=== PATIENT | male | born 1975 | race Caucasian/White ===

== ENCOUNTER 2017-01-07 22:28 | Emergency (ER) | payer OTHER ==
[~2017-01-07] VITALS: Ht 149.9 cm; Wt 72.7 kg
[2017-01-07] MEDS ORDERED: PRED20TA PO (22:52)
[2017-01-07] MEDS ORDERED: METH75TA PO (22:52)
[2017-01-07] MEDS ORDERED: IBUP80TA PO (22:52)
[2017-01-07] MEDS ORDERED: FAMOTIDINE INJ 20MG/2ML VIAL (S0028) IVP ONE (23:15)
[2017-01-07] MEDS ORDERED: methylPREDNISolone INJ 125 MG/2 ML VIAL (J2930) IV ONE (23:15)
[2017-01-07] MEDS ORDERED: diphenhydrAMINE INJ 50MG/ML VIAL (J1200) IV ONE (23:15)
[2017-01-08] MEDS ORDERED: PEPC1TAB4 PO (01:21)
[2017-01-08] MEDS ORDERED: PRED20TA PO (01:21)
[2017-01-08 01:28] VITALS: BP 142/82
--- NOTE | 2017-01-08 14:16 | ECGEPIP ---
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
== END 2017-01-08 01:33 | disposition home or self-care (01) ==
LOC: M ED 22:28
DX: R22.0 Localized swelling, mass and lump, head (principal); T78.40XA Allergy, unspecified, initial encounter; X58.XXXA Exposure to other specified factors, initial encounter; Y92.89 Other specified places as the place of occurrence of the external cause; Y93.89 Activity, other specified; Y99.8 Other external cause status; Z79.899 Other long term (current) drug therapy
CPT/HCPCS: 93005; 96374; 96375; 99284; J1200; J2930

== ENCOUNTER → 2018-01-07 | Outpatient (REF) | payer OTHER ==
[2018-01-07 12:18] LABS: BASO % 0.3 % (0.0-1.0); EOS # 0.1 10^3/uL (0.0-0.50); EOS % 1.2 % (0.0-3.0); HEMOGLOBIN 15.9 g/dl (13.5-17.5); IMMATURE GRANULOCYTE % 0.2 % (0-3.0); LYMPH # 2.3 10^3/uL (1.5-4.5); LYMPH % 34.1 % (24.0-44.0); MEAN CORPUSCULAR HEMOGLOBIN 29.9 pg (27.0-33.0); MEAN CORPUSCULAR HGB CONC 35.3 g/dl (32.0-36.5); MEAN CORPUSCULAR VOLUME 84.7 fl (80.0-96.0); MONO # 0.5 10^3/uL (0.0-0.8); MONO % 7.2 % (0.0-5.0); NEUTROPHILS # 3.8 10^3/uL (1.8-7.7); PLATELET COUNT, AUTOMATED 314 10^3/uL (150-450); RED BLOOD COUNT 5.31 10^6/uL (4.30-6.10); RED CELL DISTRIBUTION WIDTH 12.5 % (11.5-14.5); WHITE BLOOD COUNT 6.7 10^3/uL (4.0-10.0)
[2018-01-07 12:26] LABS: ALBUMIN 4.3 GM/DL (3.2-5.2); ALBUMIN/GLOBULIN RATIO 1.34 (1.00-1.93); ALKALINE PHOSPHATASE 74 U/L (45-117); ALT/SGPT 32 U/L (12-78); ANION GAP 6 MEQ/L (8-16); AST/SGOT 16 U/L (7-37); BILIRUBIN,TOTAL 0.4 MG/DL (0.2-1.0); BLOOD UREA NITROGEN 12 MG/DL (7-18); CALCIUM LEVEL 9.2 MG/DL (8.5-10.1); CARBON DIOXIDE LEVEL 29 MEQ/L (21-32); CHLORIDE LEVEL 103 MEQ/L (98-107); CHOLESTEROL LEVEL 177 MG/DL (<200); CHOLESTEROL RISK RATIO 4.783 (<5); CREATININE FOR GFR 1.03 MG/DL (0.70-1.30); GLOMERULAR FILTRATION RATE > 60.0 (>60); GLUCOSE, FASTING 89 MG/DL (70-100); HDL CHOLESTEROL 37 MG/DL (>40); LDL CHOLESTEROL 112 MG/DL (<100); NON-HDL-C 140 MG/DL; POTASSIUM SERUM 4.1 MEQ/L (3.5-5.1); SODIUM LEVEL 138 MEQ/L (136-145); TOTAL 25(OH) VITAMIN D 21.2 NG/ML (30.0-100.0); TOTAL PROTEIN 7.5 GM/DL (6.4-8.2); TRIGLYCERIDES LEVEL 142 MG/DL (<150)
[2018-01-07 12:48] LABS: ESTIMATED AVERAGE GLUCOSE 97 MG/DL (60-110)
[2018-01-07 22:07] LABS: FREE T4 0.86 NG/DL (0.76-1.46)
== END ==
LOC: M SFHCPLAZ 08:25
DX: Z13.228 Encounter for screening for other metabolic disorders (principal); E55.9 Vitamin D deficiency, unspecified

== ENCOUNTER → 2018-04-18 | Outpatient (REF) | payer OTHER ==
[~2018-04-18] MED LIST: IBUP80TA PO; METH75TA PO; PEPC1TAB5 PO; PRED20TA PO
[2018-04-18 19:01] LABS: BASO % 0.3 % (0.0-1.0); EOS % 0.7 % (0.0-3.0); HEMATOCRIT 48.1 % (42.0-52.0); HEMOGLOBIN 16.8 g/dl (13.5-17.5); LYMPH # 1.7 10^3/uL (1.5-4.5); LYMPH % 29.2 % (24.0-44.0); MEAN CORPUSCULAR HEMOGLOBIN 30.2 pg (27.0-33.0); MEAN CORPUSCULAR HGB CONC 34.9 g/dl (32.0-36.5); MEAN CORPUSCULAR VOLUME 86.5 fl (80.0-96.0); MONO # 0.4 10^3/uL (0.0-0.8); MONO % 6.1 % (0.0-5.0); NEUTROPHILS # 3.7 10^3/uL (1.8-7.7); NEUTROPHILS % 63.5 % (36.0-66.0); PLATELET COUNT, AUTOMATED 316 10^3/uL (150-450); RED BLOOD COUNT 5.56 10^6/uL (4.30-6.10); WHITE BLOOD COUNT 5.9 10^3/uL (4.0-10.0)
[2018-04-18 19:36] LABS: ALBUMIN 4.3 GM/DL (3.2-5.2); ALT/SGPT 32 U/L (12-78); BILIRUBIN,TOTAL 0.8 MG/DL (0.2-1.0); BLOOD UREA NITROGEN 9 MG/DL (7-18); CALCIUM LEVEL 8.7 MG/DL (8.5-10.1); CARBON DIOXIDE LEVEL 32 MEQ/L (21-32); CHLORIDE LEVEL 100 MEQ/L (98-107); CHOLESTEROL LEVEL 164 MG/DL (<200); CHOLESTEROL RISK RATIO 4.555 (<5); FREE T4 0.91 NG/DL (0.76-1.46); GLOMERULAR FILTRATION RATE > 60.0 (>60); GLUCOSE, FASTING 82 MG/DL (70-100); HDL CHOLESTEROL 36 MG/DL (>40); HEMOGLOBIN A1c 5.2 %; LDL CHOLESTEROL 87 MG/DL (<100); NON-HDL-C 128 MG/DL; POTASSIUM SERUM 4.1 MEQ/L (3.5-5.1); SODIUM LEVEL 139 MEQ/L (136-145); TOTAL PROTEIN 7.8 GM/DL (6.4-8.2); TRIGLYCERIDES LEVEL 206 MG/DL (<150)
[2018-04-20 11:38] LABS: THYROID PEROXIDASE ANTIBODY < 28.0 U/ML (<60.0)
== END ==
LOC: M LAB REF 11:40 → M SFHCPLAZ 11:40
PROVIDERS: ATTEND Nurse Practitioner Family
DX: F32.9 Major depressive disorder, single episode, unspecified (principal); E78.2 Mixed hyperlipidemia; E03.9 Hypothyroidism, unspecified

== ENCOUNTER → 2018-12-25 | Outpatient (CLI) | payer OTHER ==
[~2018-12-25] MED LIST changes: +METH750T2 PO; -METH75TA PO
--- NOTE | 2018-12-25 16:21 | REP ---
Five views lumbar spine: 12/25/2018. Indication: Low back pain. Comparison: None. Findings: There is no acute fracture, subluxation or dislocation. Disc space narrowing is present throughout most pronounced at L5/S1. Anterior osteophytes are noted throughout. The spinal canal and neural foramina appear patent. No significant paraspinal soft tissue abnormalities are present. No erosive osseous lesions are detected. Impression: No acute osseous lumbar spine injury. Electronically Signed by Pk Weinberg DO 12/25/2018 04:13 P
== END ==
LOC: M RAD 15:27
PROVIDERS: ATTEND Nurse Practitioner Family
DX: M54.5 Low back pain (principal)

== ENCOUNTER → 2019-02-22 | Outpatient (CLI) | payer OTHER ==
--- NOTE | 2019-02-22 09:08 | REP ---
MRI lumbar spine: 02/22/2019. Indication: Lumbar radiculopathy. Comparison: None. Technique: Multiplanar short and long TR sequences of the lumbar spine were performed without IV Gadolinium. Findings: There is straightening of the lumbar lordosis. Endplate degenerative signal changes are noted most pronounced anteriorly at T11/T12, L1/L2 and L2/L3. There is a small chronic appearing Schmorl's node within the superior L3 vertebral body. Disc desiccation is present throughout. No worrisome marrow or cord signal is present. The paraspinal soft tissues are unremarkable. L1/L2 and L2/L3: Mild diffuse disc bulges are present without significant spinal canal or neural foraminal narrowing. L3/L4 and L4/L5: Anterior disc and spur complexes and diffuse disc bulges are present with minimal effacement of the ventral thecal sac. There is no significant neural foraminal narrowing. Right-sided facet arthropathy is present at L4/L5. L5/S1: There is a posterior central small annular fissure and associated tiny disc protrusion superimposed on a diffuse disc bulge. There is no significant spinal canal / neural foraminal narrowing. 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 Electronically Signed by Pk Weinberg DO 02/22/2019 08:59 A
== END ==
LOC: M RAD 06:35
PROVIDERS: ATTEND Nurse Practitioner Family
DX: M47.27 Other spondylosis with radiculopathy, lumbosacral region (principal); M51.26 Other intervertebral disc displacement, lumbar region; M25.78 Osteophyte, vertebrae

== ENCOUNTER → 2020-11-10 | Outpatient (REF) | payer OTHER ==
[~2020-11-10] MED LIST changes: +METH-1165 PO; -METH750T2 PO
== END ==
LOC: M LAB REF 15:44
PROVIDERS: ATTEND Physician Assistant
DX: R50.9 Fever, unspecified (principal)

== ENCOUNTER 2020-11-18 20:32 | Emergency (ER) | payer OTHER ==
[~2020-11-18] VITALS: Ht 152.4 cm; Wt 67.2 kg
[2020-11-18] MEDS ORDERED: KETOROLAC 30 MG/ML 1ML VIAL IV ONE (21:30)
[2020-11-18] MEDS ORDERED: NS 1,000 ML IV ONE (21:30)
[2020-11-18 22:15] LABS: HEMATOCRIT 45.2 % (42.0-52.0); HEMOGLOBIN 16.2 g/dl (13.5-17.5); MEAN CORPUSCULAR HEMOGLOBIN 29.8 pg (27.0-33.0); MEAN CORPUSCULAR HGB CONC 35.8 g/dl (32.0-36.5); MEAN CORPUSCULAR VOLUME 83.1 fl (80.0-96.0); PLATELET COUNT, AUTOMATED 265 10^3/uL (150-450); RED BLOOD COUNT 5.44 10^6/uL (4.30-6.10); WHITE BLOOD COUNT 5.3 10^3/uL (4.0-10.0)
[2020-11-18 22:42] LABS: BLOOD UREA NITROGEN 14 MG/DL (7-18); CALCIUM LEVEL 8.6 MG/DL (8.5-10.1); CARBON DIOXIDE LEVEL 28 MEQ/L (21-32); CHLORIDE LEVEL 102 MEQ/L (98-107); CK-MB VALUE MASS 1.6 NG/ML (<3.6); CPK CREATINE PHOSPHOKINASE 80 U/L (39-308); CREATININE FOR GFR 1.03 MG/DL (0.70-1.30); GLOMERULAR FILTRATION RATE > 60.0 (>60); GLUCOSE, FASTING 87 MG/DL (70-100); POTASSIUM SERUM 3.9 MEQ/L (3.5-5.1); SODIUM LEVEL 137 MEQ/L (136-145); TROPONIN I < 0.02 NG/ML (< 0.10)
[2020-11-18 23:00] LABS: ATYPICAL LYMPH 9 % (0-5); EOSINOPHILS 1 % (0-3); LYMPHOCYTES 24 % (16-44); MONOCYTES 4 % (0-5); NEUTROPHILS 62 % (28-66); PLATELET ESTIMATE NORMAL (NORMAL)
--- NOTE | 2020-11-18 23:47 | REPVR ---
PROCEDURE INFORMATION: Exam: XR Chest Exam date and time: 11/18/2020 9:38 PM Age: 45 years old Clinical indication: Shortness of breath; Additional info: Chest tightness TECHNIQUE: Imaging protocol: XR of the chest. Views: 1 view. COMPARISON: CT ABD PELVIS W/O CONTRAST 09/23/2015 11:31 AM FINDINGS: Lungs: Nodular density at the right costophrenic angle measuring approximately 1.8 cm. No left lung infiltrate. Pleural spaces: Unremarkable. No pleural effusion. No pneumothorax. Heart/Mediastinum: Unremarkable. No cardiomegaly. Bones/joints: Unremarkable. IMPRESSION: Nodular density at the right costophrenic angle. Possible pneumonia versus neoplasm versus overlying nipple shadow. Electronically signed by: Klaus Tobar On 11/18/2020 23:46:43 PM
[2020-11-19] MEDS ORDERED: ISOVUE-370 76% 100ML VIAL As Ordered ONE (00:28)
--- NOTE | 2020-11-19 02:36 | REPVR ---
PROCEDURE INFORMATION: Exam: CT Chest With Contrast; Diagnostic Exam date and time: 11/19/2020 2:04 AM Age: 45 years old Clinical indication: Pain; Chest pressure; Additional info: Chest tightness TECHNIQUE: Imaging protocol: Diagnostic computed tomography of the chest with contrast. 3D rendering (Not supervised by radiologist): MIP and/or 3D reconstructed images were created by the technologist. Radiation optimization: All CT scans at this facility use at least one of these dose optimization techniques: automated exposure control; mA and/or kV adjustment per patient size (includes targeted exams where dose is matched to clinical indication); or iterative reconstruction. Contrast material: ISOVUE 370; Contrast volume: 75 ml; Contrast route: INTRAVENOUS (IV); COMPARISON: CR PORTABLE CHEST X-RAY 11/18/2020 9:31 PM FINDINGS: Limitations: Limited by motion artifact. Bronchial tree: Visualized bronchial tree is unremarkable. Lungs: Mild multifocal areas of peripheral consolidations and ground-glass opacities in the right middle lobe, right lower lobe, and left lower lobe. Pleural spaces: Unremarkable. No pneumothorax. No pleural effusion. Heart: Unremarkable. No cardiomegaly. No pericardial effusion. Aorta: Unremarkable. No aortic aneurysm. Lymph nodes: Unremarkable. No enlarged lymph nodes. Spleen: Mild splenomegaly. Bones/joints: Unremarkable. No acute fracture. Soft tissues: Unremarkable. IMPRESSION: 1. Mild multifocal areas of peripheral consolidations and ground-glass opacities as described. Evaluate for possible of COVID-19 pneumonia. 2. Mild splenomegaly. Electronically signed by: Klaus Tobar On 11/19/2020 02:36:20 AM
[2020-11-19 03:47] VITALS: BP 128/64
--- NOTE | 2020-11-20 05:43 | ECGEPIP ---
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
== END 2020-11-19 03:50 | disposition home or self-care (01) ==
LOC: M ED 20:32
DX: U07.1 COVID-19 (principal)
CPT/HCPCS: 71045; 71260; 80048; 82550; 82553; 84484; 85025; 85379; 93005; 93041; 94760; 96374; 99285; J1885; Q9967